=== PATIENT | female | born 1955 | race Caucasian/White ===

== ENCOUNTER 2017-10-22 14:27 | Emergency (ER) | payer MEDICARE, OTHER ==
[~2017-10-22] VITALS: Ht 162.6 cm; Wt 72.6 kg
[~2017-10-22 14:27] MED LIST: HYDR-3652 PO; LISI-603 PO; SIMV40TA5 PO; ZOLP5TAB2 PO
[2017-10-22 14:36] VITALS: BP 145/108
[2017-10-22] MEDS ORDERED: IBUPROFEN 600 MG TABLET PO STA (14:49)
[2017-10-22] MEDS ORDERED: IBUPROFEN 600 MG TABLET PO ONE (14:57)
== END 2017-10-22 15:47 | disposition home or self-care (01) ==
LOC: ER 14:29
DX: S29.012A Strain of muscle and tendon of back wall of thorax, initial encounter (principal); I10 Essential (primary) hypertension; E78.5 Hyperlipidemia, unspecified; Z88.0 Allergy status to penicillin; Z96.643 Presence of artificial hip joint, bilateral; X58.XXXA Exposure to other specified factors, initial encounter; Y93.89 Activity, other specified; Y92.89 Other specified places as the place of occurrence of the external cause; Y99.8 Other external cause status
CPT/HCPCS: 99283; A4606; Z7610

== ENCOUNTER 2020-06-21 01:46 | Emergency (ER) | payer MEDICARE, OTHER ==
[~2020-06-21] VITALS: Ht 162.6 cm; Wt 76.2 kg
[~2020-06-21 01:46] MED LIST changes: -HYDR-3652 PO; +HYDR-4303 PO; +SIMV-49 PO; -SIMV40TA5 PO
--- NOTE | 2020-06-21 02:10 | NUR ---
PT AAOX4. BIBSELF STATED WHENEVER SHE GOES TO SLEEP SHE HAS LLQ PAIN THAT RADIATES TO HER L FLANK AREA. UPON ASSESSMENT DENIES ANY PAIN. PT CONTINUED TO CHANGE HER PAIN AREA. MD AT BEDSIDE FOR EVAL. AWAITING ORDERS. DENIES PAIN, SOB, CP. RR EVEN AND UNLABORED. NO ACUTE DISTRESS NOTED. VSS.
--- NOTE | 2020-06-21 02:23 | NUR ---
ambulated to the restroom
--- NOTE | 2020-06-21 02:24 | NUR ---
EMT AT BEDSIDE FOR EKG
--- NOTE | 2020-06-21 02:27 | NUR ---
DIRECTOR PART AT BEDSIDE FOR LABS
[2020-06-21 02:37] LABS: BASOPHILS # (AUTO) 0.1 /CMM (0.0-0.2); BASOPHILS % (AUTO) 1.1 % (0.0-2.0); EOSINOPHILS % (AUTO) 1.3 % (0.0-6.0); HEMATOCRIT 43 % (33-45); HEMOGLOBIN 14.4 g/dL (11.5-14.8); LYMPHOCYTES # (AUTO) 3.3 /CMM (0.8-4.8); LYMPHOCYTES % (AUTO) 40.9 % (20.0-44.0); MEAN CORPUSCULAR HGB CONC 33 g/dl (31.0-36.0); MEAN CORPUSCULAR VOLUME 87 fL (82-100); MONOCYTES # (AUTO) 0.6 /CMM (0.1-1.30); MONOCYTES % (AUTO) 7.5 % (2.0-12.0); NEUTROPHILS % (AUTO) 49.2 % (43.0-81.0); PLATELET COUNT (AUTO) 262 /CMM (150-450); RED BLOOD CELL COUNT(AUTO) 4.98 MIL/uL (4.0-5.2); WHITE BLOOD COUNT (AUTO) 8.1 K/uL (4.3-11.0)
[2020-06-21 03:02] LABS: APPEARANCE,URINE CLEAR (CLEAR); BILIRUBIN,URINE NEGATIVE (NEGATIVE); BLOOD, URINE NEGATIVE Ery/uL (NEGATIVE); COLOR,URINE YELLOW (YELLOW); KETONES,URINE NEGATIVE (NEGATIVE); LEUKOCYTE ESTERASE ,URINE SMALL (NEGATIVE); NITRITE, URINE NEGATIVE (NEGATIVE); PROTEIN,URINE NEGATIVE (NEGATIVE); UGLUCOSE NEGATIVE (NEGATIVE); UROBILINOGEN,URINE 0.2 EU/dL (0.2)
[2020-06-21 03:03] LABS: ALANINE AMINOTRANSFERASE 29 U/L (12-78); ALBUMIN 3.6 g/dL (3.4-5.0); ALKALINE PHOSPHATASE 65 U/L (46-116); ASPARTATE AMINOTRANSFERASE 22 U/L (15-37); BILIRUBIN,DIRECT 0.1 mg/dL (0.0-0.2); BILIRUBIN,TOTAL 0.3 mg/dL (0.2-1.0); CALCIUM, SERUM 9.3 mg/dL (8.5-10.1); CARBON DIOXIDE 30 mmol/L (21-32); CHLORIDE 101 mmol/L (98-107); CREATININE 0.8 mg/dL (0.6-1.3); GLUCOSE 99 mg/dL (74-106); LIPASE 171 U/L (73-393); SODIUM SERUM 138 mmol/L (136-145); TOTAL PROTEIN, SERUM 6.9 g/dL (6.4-8.2); UREA NITROGEN, BLOOD 26 mg/dL (7-18)
[2020-06-21 03:09] LABS: POTASSIUM 2.7 mmol/L (3.5-5.1)
[2020-06-21] MEDS ORDERED: POTASSIUM CHLORIDE 20 MEQ TAB.PRT.SR PO ONE ×2 (03:15→03:30)
--- NOTE | 2020-06-21 04:56 | NUR ---
Patient discharged to home in stable condition. Written and verbal after care instructions given. Patient verbalizes understanding of instruction and RX. Pt ambulated with stead gait. vss.
[2020-06-21 04:57] VITALS: BP 121/72
== END 2020-06-21 04:58 | disposition home or self-care (01) ==
LOC: ER 02:04
DX: R10.9 Unspecified abdominal pain (principal); R07.81 Pleurodynia; I10 Essential (primary) hypertension; E78.5 Hyperlipidemia, unspecified; Z96.643 Presence of artificial hip joint, bilateral; Z88.0 Allergy status to penicillin; Z88.6 Allergy status to analgesic agent; Z88.8 Allergy status to other drugs, medicaments and biological substances; Z79.899 Other long term (current) drug therapy
CPT/HCPCS: 36415; 71100-TC; 80048-TC; 80076-TC; 81000-TC; 83690-TC; 84484-TC; 85025-TC

== ENCOUNTER 2022-04-30 07:30 | Emergency (ER) | payer OTHER ==
[~2022-04-30] VITALS: Ht 162.6 cm; Wt 72.6 kg
[~2022-04-30 07:30] MED LIST changes: -LISI-603 PO; +LISI20TA30 PO
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
--- NOTE | 2022-04-30 07:56 | NUR ---
X RAY AT BEDSIDE
--- NOTE | 2022-04-30 08:54 | NUR ---
Patient discharged to home in stable condition. Written and verbal after care instructions given. Patient verbalizes understanding of instruction.
[2022-04-30 08:55] VITALS: BP 116/72
== END 2022-04-30 08:55 | disposition home or self-care (01) ==
LOC: ER 07:41
DX: M19.011 Primary osteoarthritis, right shoulder (principal); M25.511 Pain in right shoulder; I10 Essential (primary) hypertension; E78.5 Hyperlipidemia, unspecified; Z96.643 Presence of artificial hip joint, bilateral; Z88.8 Allergy status to other drugs, medicaments and biological substances; Z79.899 Other long term (current) drug therapy
CPT/HCPCS: 73030-TC

== ENCOUNTER 2022-09-14 14:51 | Emergency (ER) | payer OTHER ==
[~2022-09-14] VITALS: Ht 162.6 cm; Wt 78.0 kg
--- NOTE | 2022-09-14 15:10 | NUR ---
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 +NAUSEA. PLACED ON BED, IN PAIN 10/10 PS
[2022-09-14] MEDS ORDERED: HYDROMORPHONE 1 MG/1 ML DISP.SYRIN ONE ×5 (15:29→22:47)
[2022-09-14] MEDS ORDERED: ONDANSETRON HCL/PF 4 MG/2 ML VIAL ONE ×3 (15:29→23:35)
[2022-09-14] MEDS ORDERED: IV NS 0.9% 1,000 ML BAG IV ONE (15:30)
[2022-09-14] MEDS ORDERED: HYDROMORPHONE INJ 2 MG/ML DISP.SYRIN IV ONE (15:30)
[2022-09-14] MEDS ORDERED: ONDANSETRON HCL/PF 4 MG/2 ML VIAL IVP ONE (15:30)
--- NOTE | 2022-09-14 15:35 | NUR ---
BLOOD DRAWN AND SENT TO LAB
[2022-09-14 15:49] LABS: BASOPHILS # (AUTO) 0.1 K/uL (0.0-0.2); BASOPHILS % (AUTO) 0.3 % (0.0-2.0); EOSINOPHILS % (AUTO) 0.2 % (0.0-6.0); HEMATOCRIT 47 % (33-45); HEMOGLOBIN 15.7 g/dL (11.5-14.8); LYMPHOCYTES # (AUTO) 3.5 K/uL (0.8-4.8); LYMPHOCYTES % (AUTO) 13.1 % (20.0-44.0); MEAN CORPUSCULAR HGB CONC 34 g/dl (31.0-36.0); MEAN CORPUSCULAR VOLUME 86 fL (82-100); MONOCYTES # (AUTO) 1.2 K/uL (0.1-1.30); MONOCYTES % (AUTO) 4.6 % (2.0-12.0); NEUTROPHILS # (AUTO) 21.8 K/uL (1.8-8.9); NEUTROPHILS % (AUTO) 81.8 % (43.0-81.0); PLATELET COUNT (AUTO) 317 K/uL (150-450); RED BLOOD CELL COUNT(AUTO) 5.48 MIL/uL (4.0-5.2); WHITE BLOOD COUNT (AUTO) 26.7 K/uL (4.3-11.0)
--- NOTE | 2022-09-14 15:51 | NUR ---
PATIENT TAKEN TO CT VIA JANE
[2022-09-14 16:11] LABS: CALCIUM, SERUM 9.7 mg/dL (8.5-10.1)
[2022-09-14 16:16] LABS: ALBUMIN 4.1 g/dL (3.4-5.0); BILIRUBIN,DIRECT 0.1 mg/dL (0.0-0.2); BILIRUBIN,TOTAL 0.6 mg/dL (0.2-1.0); TOTAL PROTEIN, SERUM 7.7 g/dL (6.4-8.2)
--- NOTE | 2022-09-14 16:44 | NUR ---
SWAB FOR COVID19 SENT TO LAB
[2022-09-14] MEDS ORDERED: IV PREMIX D5 1/2NS + KCL 1,000 ML IV ONE ×2 (17:00→17:16)
[2022-09-14] MEDS ORDERED: HYDROMORPHONE 1 MG/1 ML DISP.SYRIN IV ONE ×2 (17:00→18:30)
[2022-09-14 17:43] LABS: BAND % (MANUAL) 1 % (0.0-5.0); LYMPHOCYTES % (MANUAL) 16 % (16-48); MONOCYTES % (MANUAL) 5 % (0-11.0); NEUTROPHILS % (MANUAL) 76 (42-76); REACTIVE LYMPHOCYTES 2 % (0-0)
--- NOTE | 2022-09-14 19:37 | NUR ---
CALLED [facility] TO REQUEST TRANSFER. SPOKE WITH RICA. CLINICALS FAXED
--- NOTE | 2022-09-14 19:39 | NUR ---
NURSE GIVING CLINICAL REPORT TO TRANSFER CENTER
--- NOTE | 2022-09-14 19:45 | NUR ---
CLINICAL REPORT GIVEN TO RICA PHOTO MASK PROCESSOR [facility]
--- NOTE | 2022-09-14 19:58 | NUR ---
Rahel from [facility] called back to inform that the patient have an IPA assigned which is [facility]. Need to contact [facility] to process transfer and get authorization. Admitting notified to inititate call to IPA
[2022-09-14] MEDS ORDERED: ONDANSETRON HCL/PF 4 MG/2 ML VIAL IV ONE (20:00)
--- NOTE | 2022-09-14 20:02 | NUR ---
VERBAL ORDER ZOFRAN 4MG IVP
--- NOTE | 2022-09-14 20:34 | NUR ---
MAHESH LEATHER GOODS I ASSEMBLER FROM [facility] CALLED BACK TO GET CLINICAL INFORMATION. WILL CALL BACK ONCE TRANSFER IS ARRANGED
--- NOTE | 2022-09-14 20:35 | NUR ---
MAHESH, BIOLOGICS SPECIALIST - [phone]
[2022-09-14] MEDS: HYDROMORPHONE 1 MG/1 ML DISP.SYRIN IV PRN ×2 (20:51→22:50)
--- NOTE | 2022-09-14 21:36 | NUR ---
MAHESH LOGISTICAL ENGINEER CALLED TO INFORM THAT THERE IS NO AVAILABLE BEDS AT [facility]. WILL CALL AGAIN IN THE MORNING ONCE ROOM IS AVAILABLE.
[2022-09-14] MEDS ORDERED: LORAZEPAM INJ 2 MG/ML VIAL ONE (21:40)
[2022-09-14] MEDS ORDERED: LORAZEPAM INJ 2 MG/ML VIAL IV ONE (22:00)
[2022-09-15] MEDS ORDERED: ONDANSETRON HCL/PF 4 MG/2 ML VIAL IV ONE
[2022-09-15] MEDS ORDERED: LORAZEPAM INJ 2 MG/ML VIAL ONE (00:06)
[2022-09-15] MEDS ORDERED: LORAZEPAM INJ 2 MG/ML VIAL IV ONE ×2 (00:30→01:30)
[2022-09-15] MEDS ORDERED: HYDROMORPHONE 1 MG/1 ML DISP.SYRIN ONE ×6 (01:09→15:43)
[2022-09-15] MEDS: HYDROMORPHONE 1 MG/1 ML DISP.SYRIN IV PRN ×7 (01:13→15:57)
--- NOTE | 2022-09-15 02:06 | NUR ---
Patient is resting comfortably in bed with eyes closed. Easily aroused. VSS
[2022-09-15] MEDS ORDERED: ONDANSETRON HCL/PF 4 MG/2 ML VIAL ONE ×5 (05:36→15:42)
[2022-09-15] MEDS: ONDANSETRON HCL/PF 4 MG/2 ML VIAL IV PRN ×4 (05:38→15:58)
--- NOTE | 2022-09-15 07:15 | NUR ---
RECEIVED PT FROM KEVIN DURHAM PT AWAKE AND ALERT C/O ABDOMINALE PAIN 08/08 WITH NAUSE FAMILY AT BED SIDE LINDA
--- NOTE | 2022-09-15 07:47 | NUR ---
CALLED MAHESH PLANNING SPECIALIST FOR UPDATE. NO ANSWER, NO VOICEMAIL SET UP.
--- NOTE | 2022-09-15 07:51 | NUR ---
CALLED [facility] FOR CASE MANAGEMENT, ADVISED TO CALL BACK AT 0900 WHEN THEY OPEN.
[2022-09-15] MEDS ORDERED: HYDROMORPHONE INJ 2 MG/ML DISP.SYRIN ONE (08:04)
--- NOTE | 2022-09-15 09:17 | NUR ---
CALLED [place] [facility] FOR CASE MANAGEMENT, NO ANSWER NO VOICE MAILBOX TO LEAVE .
[2022-09-15] MEDS ORDERED: IV LR 1000 ML 1,000 ML IV ONE ×2 (09:30→11:30)
--- NOTE | 2022-09-15 09:49 | NUR ---
SPOKE TO KRYSTLE [phone] AT [facility] NURSING AERODYNAMICS PROFESSOR. I WAS ADVISED THAT A BED IS NOT AVAILABLE FOR THE PATIENT AT THIS TIME.
--- NOTE | 2022-09-15 09:52 | NUR ---
[facility] PHOTOGRAPHIC TECHNICIAN CONTACT INFO, PAULO , MCKAY , AJ .
--- NOTE | 2022-09-15 10:20 | NUR ---
SPOKE TO DENNIS FROM [facility] TRANSFER LINE [phone] I WAS ADVISED THAT THE PT NEEDS INSURANCE AUTH TO BE CLEARED FOR TRANSFER.
--- NOTE | 2022-09-15 10:42 | NUR ---
SPOKE TO [facility] LEATHER SOFTENER YAZMIN. I WAS ADVISED, THAT INSURANCE WILL GIVE AUTH SOON [facility] HAS A BED AVAILABLE.
--- NOTE | 2022-09-15 11:04 | NUR ---
[facility] CASE MANAGEMENT YAZMIN AWARE OF THIS CASE. THE FOLLOWING NUMBERS ARE GIVEN TO HER. LILLIE (BED CONTROL) FOR [facility]: [phone] DENNIS (TRANSFER CENTER) FOR [facility]: [phone]
--- NOTE | 2022-09-15 13:34 | NUR ---
CALL FROM [facility] WITH [place] INFO: ACCEPTED BY DR ROSHNI [facility] UNIT [address] ROOM 1719 REPORT TO [phone] [address] [facility] [address] CALL ETA TO [phone]
--- NOTE | 2022-09-15 13:38 | NUR ---
ETA 90 MINS BLS TRANSPORT.
--- NOTE | 2022-09-15 14:20 | NUR ---
PT TRANSFER TO [facility] ROOM 1719 Hand off LOW .Dangelo RN STABLE CONDITION AND VS
[2022-09-15 16:00] VITALS: BP 128/72
--- NOTE | 2022-09-15 16:00 | NUR ---
transfer to [facility] VIA ESTIVEN
[2022-09-15] MEDS ORDERED: ONDANSETRON HCL/PF - ER 4 MG/2 ML VIAL IV ONE (16:30)
== END 2022-09-15 16:30 | disposition short-term general hospital (02) ==
LOC: ER 14:57
DX: K85.90 Acute pancreatitis without necrosis or infection, unspecified (principal); E87.6 Hypokalemia; Z20.822 Contact with and (suspected) exposure to COVID-19; K80.20 Calculus of gallbladder without cholecystitis without obstruction; Z96.643 Presence of artificial hip joint, bilateral; Z88.1 Allergy status to other antibiotic agents; Z88.0 Allergy status to penicillin; E78.5 Hyperlipidemia, unspecified; I10 Essential (primary) hypertension
CPT/HCPCS: 99285; 74176; 96365; 96366; 96375; 71045; 96361 ×2; 87426; 93005; 96376 ×2; 85025; 80048; 83690; 80076; 36415; 85730; 85007; J2060 ×2; J2405 ×8; J3490; J1170 ×12; C9803; J7120 ×4

== ENCOUNTER 2023-05-31 19:52 | Inpatient (IN) | payer MEDICARE, OTHER ==
[~2023-05-31] VITALS: Ht 157.5 cm; Wt 61.7 kg
--- NOTE | 2023-05-31 21:45 | NUR ---
BIB DAUGHTER AND CG FOR FEVER AND WEAKNESS TODAY. LAST TYLENOL: 650MG AT 12 - COUGH, DYSURIA OR HEMATURIA.
--- NOTE | 2023-05-31 22:10 | NUR ---
DR CABRERA AT [facility] SIDE
--- NOTE | 2023-05-31 22:31 | NUR ---
BLOOD DRAWN AND SENT TO LAB.
--- NOTE | 2023-05-31 22:35 | NUR ---
X-RAY TECH AT BEDSIDE
[2023-05-31 22:53] LABS: BASOPHILS % (AUTO) 0.2 % (0.0-2.0); EOSINOPHILS % (AUTO) 0.1 % (0.0-6.0); HEMATOCRIT 38 % (33-45); HEMOGLOBIN 12.4 g/dL (11.5-14.8); LYMPHOCYTES # (AUTO) 2.7 K/uL (0.8-4.8); LYMPHOCYTES % (AUTO) 24.1 % (20.0-44.0); MEAN CORPUSCULAR HGB CONC 33 g/dl (31.0-36.0); MEAN CORPUSCULAR VOLUME 90 fL (82-100); MONOCYTES # (AUTO) 0.7 K/uL (0.1-1.30); MONOCYTES % (AUTO) 6.2 % (2.0-12.0); NEUTROPHILS # (AUTO) 7.7 K/uL (1.8-8.9); NEUTROPHILS % (AUTO) 69.4 % (43.0-81.0); PLATELET COUNT (AUTO) 253 K/uL (150-450)
[2023-05-31 23:01] LABS: CALCIUM, SERUM 8.4 mg/dL (8.5-10.1); CARBON DIOXIDE 25 mmol/L (21-32); CHLORIDE 105 mmol/L (98-107); CREATININE 0.7 mg/dL (0.6-1.3); GLUCOSE 118 mg/dL (74-106); SODIUM SERUM 137 mmol/L (136-145); UREA NITROGEN, BLOOD 15 mg/dL (7-18)
[2023-05-31] MEDS ORDERED: IV NS 0.9% 250 ML IV ONE (23:07)
[2023-05-31] MEDS ORDERED: CT SWABBABLE VALVE TRANS SET 1 EA INFUS.SET MC ONE (23:07)
[2023-05-31] MEDS ORDERED: IOHEXOL-350 100 ML VIAL IV ONE (23:07)
[2023-05-31 23:13] LABS: ALANINE AMINOTRANSFERASE 49 U/L (12-78); ALBUMIN 2.2 g/dL (3.4-5.0); ALKALINE PHOSPHATASE 273 U/L (46-116); ASPARTATE AMINOTRANSFERASE 39 U/L (15-37); BILIRUBIN,DIRECT 0.2 mg/dL (0.0-0.2); BILIRUBIN,TOTAL 0.5 mg/dL (0.2-1.0); TOTAL PROTEIN, SERUM 6.3 g/dL (6.4-8.2)
--- NOTE | 2023-05-31 23:14 | NUR ---
PATIENT TAKEN TO CT VIA JANE
[2023-05-31 23:35] LABS: BILIRUBIN,URINE NEGATIVE (NEGATIVE); COLOR,URINE YELLOW (YELLOW); LEUKOCYTE ESTERASE ,URINE NEGATIVE (NEGATIVE); NITRITE, URINE NEGATIVE (NEGATIVE); PH,URINE 5.5 (5.0-8.0); PROTEIN,URINE NEGATIVE (NEGATIVE); UGLUCOSE NEGATIVE (NEGATIVE); UROBILINOGEN,URINE 0.2 EU/dL (0.2)
[2023-06-01] MEDS ORDERED: CIPROFLOXACIN IV RTU 200 ML IV ONE (00:43)
[2023-06-01] MEDS ORDERED: POTASSIUM CHLORIDE 20 MEQ TAB.PRT.SR PO ONE ×2 (00:58→01:00)
[2023-06-01] MEDS ORDERED: VANCOMYCIN 1 GM in IV D5W 250 ML IV ONE (01:00)
[2023-06-01] MEDS ORDERED: CIPROFLOXACIN IV RTU 400 MG in PREMIX 1 EA IV SCH ×2 (01:00→13:00)
[2023-06-01] MEDS ORDERED: ONDANSETRON HCL/PF 4 MG/2 ML VIAL IVP PRN (01:30)
[2023-06-01] MEDS ORDERED: Z GUARD REMEDY 4 OZ OINT TP PRN (01:30)
[2023-06-01] MEDS ORDERED: MAG HYDROX/AL HYDROX/SIMETH 30 ML UDC PO PRN (01:30)
[2023-06-01] MEDS ORDERED: ZOLPIDEM TARTRATE 5 MG TABLET PO PRN (01:30)
[2023-06-01] MEDS ORDERED: MAGNESIUM HYDROXIDE 30 ML UDC PO PRN (01:30)
[2023-06-01] MEDS ORDERED: ACETAMINOPHEN 325 MG TABLET PO PRN (01:30)
--- NOTE | 2023-06-01 01:31 | NUR ---
report given to lina
[2023-06-01] MEDS ORDERED: VANCOMYCIN 1 GM /D5W 250 ML PB IV ONE (01:59)
[2023-06-01 02:15] VITALS: BP 115/62; TEMP 98.2; O2SAT 97
[2023-06-01 02:30] VITALS: BP 115/62; TEMP 98.2; O2SAT 97
--- NOTE | 2023-06-01 02:33 | NUR ---
pt transported to room 306 via [facility] in stable condition
--- NOTE | 2023-06-01 02:45 | NUR ---
MS TUTORING MANAGER NOTES: RECEIVED PATIENT FROM ER AT 0215 VIA STRETCHER ACCOMPANIED BY DAUGHTER AND CAREGIVER. REPORT GIVEN BY LAMIN DURHMA. PATIENT IS A/O X4, ABLE TO MAKE NEEDS KNOWN. PATIENT ORIENTED TO ROOM AND HOW TO USE THE CALL LIGHT. ON ROOM AIR, BREATHING EVEN AND UNLABORED. NO SOB/ NOTED. NO COMPLAINTS OF PAIN OR DISCOMFORT AT THIS TIME. ALL BELONGINGS ACCOUNTED FOR, BELONGING SHEET SIGNED. IV ACCESS AT RAC #20G-SL, INTACT AND PATENT. V/S TAKEN FOLLOWS: BP 115/62, HR 63, TEMP 98.2, RR 18, SPO2 97%. SKIN ASSESSMENT DONE, WOUND NOTED ON ABDOMEN AND SURGICAL INCISION ON RIGHT HIP. PHOTOS TAKEN AND PLACED IN CHART. FALL AND SAFETY PRECAUTIONS IN PLACED, BED IN LOW AND LOCKED POSITION, SIDE RAILS UP X2. CALL LIGHT WITHIN EASY REACH.
[2023-06-01 06:20] LABS: ALBUMIN 1.8 g/dL (3.4-5.0); BILIRUBIN,TOTAL 0.4 mg/dL (0.2-1.0); CALCIUM, SERUM 8.4 mg/dL (8.5-10.1); CREATININE 0.6 mg/dL (0.6-1.3); MAGNESIUM 1.9 mg/dL (1.8-2.4); PHOSPHORUS 3.3 mg/dL (2.5-4.9); POTASSIUM 3.1 mmol/L (3.5-5.1); TOTAL PROTEIN, SERUM 5.4 g/dL (6.4-8.2)
--- NOTE | 2023-06-01 06:30 | NUR ---
MS RN CLOSING NOTES: PATIENT ASLEEP ON BED, A/O X4. ON ROOM AIR, BREATHING EVEN AND UNLABORED. NO SOB/ NOTED. NO COMPLAINTS OF PAIN OR DISCOMFORT NOTED. IV ACCESS AT RAC #20G-SL, INTACT AND PATENT. WOUND CARE DONE DURING THE SHIFT. FALL AND SAFETY PRECAUTIONS IN PLACED, BED IN LOW AND LOCKED POSITION, SIDE RAILS UP X2. CALL LIGHT WITHIN EASY REACH. ALL NURSING NEEDS ATTENDED. ENDORSED TO AM NURSE FOR RADHA.
--- NOTE | 2023-06-01 07:43 | NUR ---
MS RN OPENING NOTES RECEIVED PATIENT AWAKE IN BED. PATIENT IS A/O X4, ABLE TO MAKE NEEDS KNOWN. PATIENT ORIENTED TO ROOM AND HOW TO USE THE CALL LIGHT. ON ROOM AIR, BREATHING EVEN AND UNLABORED. NO SOB/ NOTED AT THIS TIME. NO COMPLAINTS OF PAIN OR DISCOMFORT AT THIS TIME. IV ACCESS AT RAC #20G-SL, INTACT AND PATENT. WOUND NOTED ON ABDOMEN AND SURGICAL INCISION ON RIGHT HIP. FALL AND SAFETY PRECAUTIONS IN PLACED, BED IN LOW AND LOCKED POSITION, SIDE RAILS UP X2. CALL LIGHT WITHIN EASY REACH. WILL CONTINUE TO MONITOR PATIENT.
[2023-06-01 08:02] VITALS: BP 116/66; TEMP 98.4; O2SAT 95
[2023-06-01] MEDS: POTASSIUM CHLORIDE 20 MEQ TAB.PRT.SR PO SCH ×2 (08:40→09:12)
[2023-06-01] MEDS: PANTOPRAZOLE 40 MG VIAL IV SCH (08:40)
--- NOTE | 2023-06-01 09:00 | NUR ---
RN NOTE DAUGHTER CALLED TWICE. SPOKE TO HER AND INFORMED ME THAT SHE ALREADY SPOKE WITH HER MOM'S DAUGHTER AT [facility] AND GIVING US CONSENT FOR PARACENTESIS.
--- NOTE | 2023-06-01 13:08 | NUR ---
RN NOTE STARTED ULTRASOUND GUIDED PARACENTESIS WITH DR. LYNN. WILL CONTINUE TO MONITOR PATIENT.
--- NOTE | 2023-06-01 13:30 | NUR ---
RN NOTE DONE PARACENTESIS. SENT ASCITIC FLUIDS 250ML AT LAB WITH CYTOLOGY REPORT. WILL CONTINUE TO MONITOR PATIENT.
[2023-06-01 15:54] VITALS: BP 130/75; TEMP 99.1; O2SAT 97
--- NOTE | 2023-06-01 16:59 | NUR ---
RN NOTE PATIENT HAS TEMPERATURE IS 100.8. TYLENOL 650 MG GIVEN. WILL CONTINUE TO MONITOR
[2023-06-01] MEDS: MEROPENEM 500 MG in IV NS 0.9% 50 ML IV SCH (17:25)
[2023-06-01] MEDS: HYDROGEL DRESSING 90 GM TUBE TP SCH (17:42)
[2023-06-01] MEDS: VANCOMYCIN 1 GM in IV D5W 250ml IV SCH (18:11)
--- NOTE | 2023-06-01 19:06 | NUR ---
MS RN CLOSING NOTES: PATIENT AWAKE ON BED, CAREGIVER AT BEDSIDE. A/O X4. ON ROOM AIR, BREATHING EVEN AND UNLABORED. NO SOB/ NOTED. NO COMPLAINTS OF PAIN OR DISCOMFORT NOTED. IV ACCESS AT LFA #20G-SL, INTACT AND PATENT. WOUND CARE DONE DURING THE SHIFT. PARACENTESIS AND WOUND DEBRIDEMENT DONE. ALL DUE MEDS GIVEN. FALL AND SAFETY PRECAUTIONS IN PLACED, BED IN LOW AND LOCKED POSITION, SIDE RAILS UP X2. CALL LIGHT WITHIN EASY REACH. ALL NURSING NEEDS ATTENDED. ENDORSED TO NIGHT NURSE FOR RADHA.
--- NOTE | 2023-06-01 19:30 | NUR ---
MS RN OPENING NOTES RECEIVED PATIENT AWAKE IN BED, FAMILY AND CAREGIVER AT BEDSIDE. PATIENT IS A/O X4, ABLE TO MAKE NEEDS KNOWN. ON ROOM AIR, BREATHING EVEN AND UNLABORED. NO SOB/ NOTED AT THIS TIME. NO COMPLAINTS OF PAIN OR DISCOMFORT AT THIS TIME. IV ACCESS AT RAC #20G-SL, INTACT AND PATENT. WOUND NOTED ON ABDOMEN AND SURGICAL INCISION ON RIGHT HIP. FALL AND SAFETY PRECAUTIONS IN PLACE: BED IN LOW AND LOCKED POSITION, SIDE RAILS UP X2. CALL LIGHT WITHIN EASY REACH. WILL CONTINUE TO MONITOR AND ASSIST.
[2023-06-01 20:00] VITALS: BP 101/63; TEMP 97.6; O2SAT 96
[2023-06-01] MEDS ORDERED: METH-647 PO (23:45)
[2023-06-01] MEDS ORDERED: LIPA1CAP15 PO (23:45)
[2023-06-01] MEDS ORDERED: SPIR50TA5 PO (23:45)
[2023-06-01] MEDS ORDERED: CITA40TA11 PO (23:45)
[2023-06-01] MEDS ORDERED: FURO20TA4 PO (23:45)
[2023-06-02] MEDS: MEROPENEM 500 MG in IV NS 0.9% 50 ML IV SCH ×2 (00:30→08:22)
[2023-06-02] MEDS: VANCOMYCIN 1 GM in IV D5W 250ml IV SCH (05:27)
--- NOTE | 2023-06-02 06:03 | NUR ---
MS RN CLOSING NOTES: PATIENT AWAKE ON BED. A/O X4, ABLE TO MAKE NEEDS KNOWN. STABLE ON ROOM AIR, BREATHING EVEN AND UNLABORED. NO SOB/ NOTED. NO COMPLAINTS OF PAIN OR DISCOMFORT NOTED. IV ACCESS AT LFA #20G-SL, INTACT AND PATENT. WOUND CARE DONE DURING THE SHIFT. PUREWICK PUT IN PLACE, DRAINING URINE WELL. ALL CARE PROVIDED AND MEDS TOLERATED WELL. HOME MEDICATIONS RECONCILED AND WILL BE GIVEN TO PHARMACY. FALL AND SAFETY PRECAUTIONS IN PLACE, BED IN LOW AND LOCKED POSITION, SIDE RAILS UP X2. CALL LIGHT WITHIN EASY REACH. ALL NURSING NEEDS ATTENDED. WILL ENDORSE RADHA TO DAY SHIFT NURSE.
[2023-06-02 06:06] LABS: ALBUMIN 1.6 g/dL (3.4-5.0); BILIRUBIN,TOTAL 0.3 mg/dL (0.2-1.0); CALCIUM, SERUM 8.4 mg/dL (8.5-10.1); CREATININE 0.4 mg/dL (0.6-1.3); PHOSPHORUS 3.6 mg/dL (2.5-4.9); POTASSIUM 3.2 mmol/L (3.5-5.1); TOTAL PROTEIN, SERUM 5.3 g/dL (6.4-8.2)
--- NOTE | 2023-06-02 07:18 | NUR ---
MS RN OPENING NOTES RECEIVED PATIENT SLEEPING IN BED, EASY TO WAKE UP. PATIENT IS A/O X4, ABLE TO MAKE NEEDS KNOWN. ON ROOM AIR, BREATHING EVEN AND UNLABORED. NO SOB/ NOTED AT THIS TIME. NO COMPLAINTS OF PAIN OR DISCOMFORT AT THIS TIME. IV ACCESS AT LFA #20G-SL, INTACT AND PATENT. WITH WOUND NOTED ON ABDOMEN AND SURGICAL INCISION ON RIGHT HIP, WITH DRY DRESSING CLEAN AND INTACT. FALL AND SAFETY PRECAUTIONS IN PLACED, BED IN LOW AND LOCKED POSITION, SIDE RAILS UP X2. CALL LIGHT WITHIN EASY REACH. WILL CONTINUE WITH THE PLAN OF CARE.
[2023-06-02] MEDS: PANTOPRAZOLE 40 MG VIAL IV SCH (08:22)
[2023-06-02] MEDS: POTASSIUM CHLORIDE 20 MEQ TAB.PRT.SR PO SCH ×2 (08:23→09:47)
[2023-06-02 08:29] VITALS: BP 139/70; TEMP 97.9; O2SAT 95
[2023-06-02] MEDS: HYDROGEL DRESSING 90 GM TUBE TP SCH (09:07)
--- NOTE | 2023-06-02 14:10 | NUR ---
MS RN NOTE PATIENT SIGNED AGAINST [facility]. INFORMED DR. SCOTT.
--- NOTE | 2023-06-02 14:20 | NUR ---
MS EARLY INTERVENTION SCHOOL PSYCHOLOGIST NOTES DISCHARGE AGAINST [facility].PATIENT IS A/O X 4, ABLE TO MAKE TO MAKE NEEDS KNOWN. STABLE ON ROOM AIR, NO SOB OR S/SX OF DISTRESS NOTED. ALL BELONGINGS ACCOUNTED FOR , BELONGING SHEET SIGNED. PATIENT DENIES DISCOMFORT OR ANY PAIN AT THIS TIME. IV ACCESS REMOVED, CATHETER TIP INTACT, PRESSURE DRESSING APPLIED. EXITCARE FOLDER GIVEN TO PATIENT. PATIENT LEFT IN STABLE CONDITION WITH FAMILY VIA PRIVATE CAR.
[2023-06-03] MEDS ORDERED: PANTOPRAZOLE 40 MG TABLET.DR PO SCH (09:00)
== END 2023-06-02 14:34 | disposition left against medical advice (07) | DRG 357 ==
LOC: ER 19:55 → MED 06-01 01:22
PROVIDERS: ADMIT Internal Medicine; ATTEND Internal Medicine
PROC: 0JB80ZZ Excision of Abdomen Subcutaneous Tissue and Fascia, Open Approach (ICD-10-PCS; principal; 2023-06-01)
PROC: 0KBN0ZZ Excision of Right Hip Muscle, Open Approach (ICD-10-PCS; 2023-06-01)
PROC: 0W9G3ZZ Drainage of Peritoneal Cavity, Percutaneous Approach (ICD-10-PCS; 2023-06-01)
DX: K65.2 Spontaneous bacterial peritonitis (principal); R18.8 Other ascites; I10 Essential (primary) hypertension; E78.5 Hyperlipidemia, unspecified; F41.9 Anxiety disorder, unspecified; Z87.19 Personal history of other diseases of the digestive system; E87.6 Hypokalemia; R53.1 Weakness; S31.109A Unspecified open wound of abdominal wall, unspecified quadrant without penetration into peritoneal cavity, initial encounter; S71.001A Unspecified open wound, right hip, initial encounter; X58.XXXA Exposure to other specified factors, initial encounter; Y93.9 Activity, unspecified; Y92.009 Unspecified place in unspecified non-institutional (private) residence as the place of occurrence of the external cause; Z88.0 Allergy status to penicillin; Z95.828 Presence of other vascular implants and grafts; K76.0 Fatty (change of) liver, not elsewhere classified; K57.30 Diverticulosis of large intestine without perforation or abscess without bleeding; F32.9 Major depressive disorder, single episode, unspecified
CPT/HCPCS: 36415; 71045-TC; 76942-TC; 80048-TC; 80053-TC; 80061-TC; 80076-TC; 83605-TC; 83735-TC; 83880; 84100-TC; 84484-TC; 85025-TC; 85610-TC; 87040-TC; 87086-TC; 88108-TC; 88305-TC; 88312-TC; 89051-TC; A4216; A4223; A6248; A6253; A6403; A6407; C9113; G0378; J0744; J2185; J3370; J7050; J7060; Q9967

== ENCOUNTER 2025-03-15 22:00 | Inpatient (IN) | payer MEDICARE, OTHER ==
[~2025-03-15] VITALS: Ht 157.5 cm; Wt 64.6 kg
[~2025-03-15 22:00] MED LIST changes: +CITA40TA11 PO; +FURO20TA4 PO; +LIPA1CAP15 PO; +METH-647 PO; +SPIR50TA5 PO
[2025-03-15] MEDS ORDERED: ONDANSETRON HCL/PF 4 MG/2 ML VIAL ONE (23:24)
[2025-03-15] MEDS ORDERED: BACLOFEN (10 MG) 10 MG TABLET ONE (23:35)
[2025-03-15] MEDS: IV NS 0.9% 1,000 ML BAG IV ONE (23:37)
[2025-03-15] MEDS: BACLOFEN (10 MG) 10 MG TABLET PO ONE (23:37)
[2025-03-15] MEDS: ONDANSETRON HCL/PF 4 MG/2 ML VIAL IVP ONE (23:37)
[2025-03-15 23:42] LABS: HEMATOCRIT 41 % (33-45); HEMOGLOBIN 13.6 g/dL (11.5-14.8); LYMPHOCYTES # (AUTO) 0.2 K/uL (0.8-4.8); LYMPHOCYTES % (AUTO) 2.5 % (20.0-44.0); MEAN CORPUSCULAR HEMOGLOBIN 29 PG (26.0-33.0); MEAN CORPUSCULAR HGB CONC 34 g/dl (31.0-36.0); MEAN CORPUSCULAR VOLUME 88 fL (82-100); MONOCYTES % (AUTO) 0.4 % (2.0-12.0); NEUTROPHILS # (AUTO) 7.6 K/uL (1.8-8.9); NEUTROPHILS % (AUTO) 97.1 % (43.0-81.0); PLATELET COUNT (AUTO) 158 K/uL (150-450); RED BLOOD CELL COUNT(AUTO) 4.62 MIL/uL (4.0-5.2); RED CELL DISTRIBUTION WIDTH 15.3 % (11.5-15.0); WHITE BLOOD COUNT (AUTO) 7.8 K/uL (4.3-11.0)
[2025-03-15 23:49] LABS: CALCIUM, SERUM 9.1 mg/dL (8.5-10.1); CARBON DIOXIDE 29 mmol/L (21-32); CHLORIDE 102 mmol/L (98-107); CREATININE 1.2 mg/dL (0.6-1.3); GLUCOSE 125 mg/dL (74-106); POTASSIUM 3.4 mmol/L (3.5-5.1); SODIUM SERUM 140 mmol/L (136-145); UREA NITROGEN, BLOOD 28 mg/dL (7-18)
[2025-03-15 23:55] LABS: ALANINE AMINOTRANSFERASE 22 U/L (12-78); ALBUMIN 3.7 g/dL (3.4-5.0); ALKALINE PHOSPHATASE 101 U/L (46-116); ASPARTATE AMINOTRANSFERASE 19 U/L (15-37); BILIRUBIN,DIRECT 0.2 mg/dL (0.0-0.2); BILIRUBIN,TOTAL 0.6 mg/dL (0.2-1.0); LIPASE 213 U/L (16-77); TOTAL PROTEIN, SERUM 6.9 g/dL (6.4-8.2)
[2025-03-16] LABS: LACTIC ACID 2.8 mmol/L (0.4-2.0)
[2025-03-16] MEDS ORDERED: MORPHINE SULFATE INJ 4 MG/ML DISP.SYRIN ONE (02:18)
[2025-03-16] MEDS: MORPHINE SULFATE INJ 2 MG/ML DISP.SYRIN IV ONE (02:20)
[2025-03-16 03:34] LABS: APPEARANCE,URINE SLIGHTLY CLOUDY (CLEAR); BILIRUBIN,URINE NEGATIVE (NEGATIVE); BLOOD, URINE NEGATIVE Ery/uL (NEGATIVE); COLOR,URINE YELLOW (YELLOW); KETONES,URINE NEGATIVE (NEGATIVE); LEUKOCYTE ESTERASE ,URINE TRACE (NEGATIVE); NITRITE, URINE POSITIVE (NEGATIVE); PROTEIN,URINE NEGATIVE (NEGATIVE); UGLUCOSE NEGATIVE (NEGATIVE); UROBILINOGEN,URINE 0.2 EU/dL (0.2)
[2025-03-16 03:50] LABS: BACTERIA,URINE Many /HPF (None Seen); SQUAMOUS EPITHELIAL CELL,UR Moderate /HPF (None Seen)
[2025-03-16 03:51] LABS: ADD URINE CULTURE YES; RBC,URINE 0-2 /HPF (0-2)
[2025-03-16] MEDS ORDERED: CIPROFLOXACIN IV RTU 200 ML IV ONE (05:41)
[2025-03-16] MEDS: CIPROFLOXACIN IV RTU 400 MG in PREMIX 1 EA IV SCH ×2 (06:00→17:15)
[2025-03-16] MEDS: IV NS 0.9% 1,000 ML BAG IV ONE (06:04)
[2025-03-16] MEDS ORDERED: Z GUARD REMEDY 4 OZ OINT TP PRN (06:30)
[2025-03-16] MEDS ORDERED: MAGNESIUM HYDROXIDE 30 ML UDC PO PRN (06:30)
[2025-03-16] MEDS ORDERED: MAG HYDROX/AL HYDROX/SIMETH 30 ML UDC PO PRN (06:30)
[2025-03-16] MEDS ORDERED: ACETAMINOPHEN 325 MG TABLET PO PRN (06:30)
[2025-03-16] MEDS ORDERED: ONDANSETRON HCL/PF 4 MG/2 ML VIAL IVP PRN (06:30)
[2025-03-16 07:24] LABS: BASOPHILS % (AUTO) 0.3 % (0.0-2.0); EOSINOPHILS % (AUTO) 0.1 % (0.0-6.0); HEMATOCRIT 37 % (33-45); LYMPHOCYTES # (AUTO) 0.5 K/uL (0.8-4.8); LYMPHOCYTES % (AUTO) 2.7 % (20.0-44.0); MEAN CORPUSCULAR HEMOGLOBIN 29 PG (26.0-33.0); MEAN CORPUSCULAR HGB CONC 33 g/dl (31.0-36.0); MEAN CORPUSCULAR VOLUME 89 fL (82-100); MONOCYTES # (AUTO) 0.7 K/uL (0.1-1.30); MONOCYTES % (AUTO) 3.6 % (2.0-12.0); NEUTROPHILS # (AUTO) 17.3 K/uL (1.8-8.9); NEUTROPHILS % (AUTO) 93.3 % (43.0-81.0); PLATELET COUNT (AUTO) 151 K/uL (150-450); RED BLOOD CELL COUNT(AUTO) 4.16 MIL/uL (4.0-5.2); RED CELL DISTRIBUTION WIDTH 15.5 % (11.5-15.0); WHITE BLOOD COUNT (AUTO) 18.5 K/uL (4.3-11.0)
[2025-03-16 07:39] LABS: CALCIUM, SERUM 8.3 mg/dL (8.5-10.1); CREATININE 1.2 mg/dL (0.6-1.3); MAGNESIUM 1.9 mg/dL (1.8-2.4); PHOSPHORUS 3.8 mg/dL (2.5-4.9); POTASSIUM 3.4 mmol/L (3.5-5.1)
[2025-03-16 07:52] LABS: ANISOCYTOSIS 1+; BAND % (MANUAL) 1 % (0.0-5.0); LYMPHOCYTES % (MANUAL) 1 % (16-48); MONOCYTES % (MANUAL) 1 % (0-11.0); NEUTROPHILS % (MANUAL) 97 (42-76); PLATELET ESTIMATE ADEQUATE; STOMATOCYTES 1+
[2025-03-16] MEDS: PANTOPRAZOLE 40 MG TABLET.DR PO SCH (08:14)
[2025-03-16] MEDS: POTASSIUM CHLORIDE 20 MEQ TAB.PRT.SR PO SCH (09:32)
[2025-03-16] MEDS: IV NS 0.9% 1,000 ML IV PRN (09:45)
[2025-03-16] MEDS: ENOXAPARIN SODIUM 40 MG/0.4 ML DISP.SYRIN SQ SCH (11:36)
[2025-03-16] MEDS: METHOCARBAMOL (750MG) 750 MG TABLET PO SCH (11:37)
[2025-03-16] MEDS: Magnesium 1GM/D5W 100ML PREMIX 100 ML IV SCH (11:37)
[2025-03-16 16:15] VITALS: BP 93/52; TEMP 97.7; O2SAT 96
[2025-03-16] MEDS ORDERED: CITA40TA11 PO (17:36)
[2025-03-16] MEDS ORDERED: SIMV-46 PO (17:36)
[2025-03-16] MEDS ORDERED: FURO20TA4 PO (17:36)
[2025-03-16] MEDS ORDERED: ZOLP5TAB8 PO (17:36)
[2025-03-16] MEDS ORDERED: SPIR50TA5 PO (17:36)
[2025-03-16] MEDS ORDERED: CHOL100062 PO (17:36)
[2025-03-16] MEDS ORDERED: PANT40TA49 PO (17:36)
[2025-03-16 20:00] VITALS: BP 93/48; TEMP 97.9; O2SAT 100
[2025-03-16] MEDS: ZOLPIDEM TARTRATE 5 MG TABLET PO SCH (22:58)
[2025-03-17 06:58] LABS: BASOPHILS % (AUTO) 0.4 % (0.0-2.0); EOSINOPHILS # (AUTO) 0.1 K/uL (0.0-0.7); EOSINOPHILS % (AUTO) 0.8 % (0.0-6.0); HEMATOCRIT 33 % (33-45); HEMOGLOBIN 10.7 g/dL (11.5-14.8); LYMPHOCYTES # (AUTO) 1.3 K/uL (0.8-4.8); LYMPHOCYTES % (AUTO) 15.2 % (20.0-44.0); MEAN CORPUSCULAR HEMOGLOBIN 29 PG (26.0-33.0); MEAN CORPUSCULAR HGB CONC 33 g/dl (31.0-36.0); MEAN CORPUSCULAR VOLUME 90 fL (82-100); MONOCYTES # (AUTO) 0.6 K/uL (0.1-1.30); MONOCYTES % (AUTO) 6.4 % (2.0-12.0); NEUTROPHILS # (AUTO) 6.7 K/uL (1.8-8.9); NEUTROPHILS % (AUTO) 77.2 % (43.0-81.0); PLATELET COUNT (AUTO) 124 K/uL (150-450); RED BLOOD CELL COUNT(AUTO) 3.66 MIL/uL (4.0-5.2); RED CELL DISTRIBUTION WIDTH 15.5 % (11.5-15.0); WHITE BLOOD COUNT (AUTO) 8.7 K/uL (4.3-11.0)
[2025-03-17 07:08] LABS: ALBUMIN 2.5 g/dL (3.4-5.0); BILIRUBIN,TOTAL 0.7 mg/dL (0.2-1.0); CALCIUM, SERUM 8.2 mg/dL (8.5-10.1); MAGNESIUM 2.1 mg/dL (1.8-2.4); PHOSPHORUS 2.5 mg/dL (2.5-4.9); POTASSIUM 3.4 mmol/L (3.5-5.1); TOTAL PROTEIN, SERUM 5.4 g/dL (6.4-8.2)
[2025-03-17 07:30] VITALS: BP 98/56; TEMP 98.4; O2SAT 86
[2025-03-17] MEDS ORDERED: CITALOPRAM HYDROBROMIDE 20 MG TABLET PO SCH (09:00)
[2025-03-17] MEDS: POTASSIUM CHLORIDE 10 MEQ TABLET.SA PO ONE (09:36)
[2025-03-17 16:00] VITALS: BP 100/65; TEMP 97.3; O2SAT 96
[2025-03-17 17:30] VITALS: BP 110/65; TEMP 97.3; O2SAT 98
[2025-03-17] MEDS: HYDROCODONE/APAP 5/325MG TABLET PO PRN (17:33)
[2025-03-17] MEDS: diphenhydrAMINE HCL ELIX 25 MG/10 ML UDC PO ONE (18:25)
[2025-03-17 20:00] VITALS: BP 106/60; TEMP 97.7; O2SAT 97
[2025-03-18 07:01] LABS: BASOPHILS % (AUTO) 0.6 % (0.0-2.0); EOSINOPHILS # (AUTO) 0.1 K/uL (0.0-0.7); EOSINOPHILS % (AUTO) 0.9 % (0.0-6.0); HEMATOCRIT 32 % (33-45); HEMOGLOBIN 10.6 g/dL (11.5-14.8); LYMPHOCYTES # (AUTO) 1.3 K/uL (0.8-4.8); LYMPHOCYTES % (AUTO) 20.1 % (20.0-44.0); MEAN CORPUSCULAR HEMOGLOBIN 29 PG (26.0-33.0); MEAN CORPUSCULAR HGB CONC 33 g/dl (31.0-36.0); MEAN CORPUSCULAR VOLUME 89 fL (82-100); MONOCYTES # (AUTO) 0.6 K/uL (0.1-1.30); NEUTROPHILS # (AUTO) 4.5 K/uL (1.8-8.9); NEUTROPHILS % (AUTO) 69.4 % (43.0-81.0); PLATELET COUNT (AUTO) 122 K/uL (150-450); RED CELL DISTRIBUTION WIDTH 15.4 % (11.5-15.0); WHITE BLOOD COUNT (AUTO) 6.5 K/uL (4.3-11.0)
[2025-03-18 07:08] LABS: CALCIUM, SERUM 8.3 mg/dL (8.5-10.1); CREATININE 0.9 mg/dL (0.6-1.3); PHOSPHORUS 2.3 mg/dL (2.5-4.9); POTASSIUM 3.6 mmol/L (3.5-5.1)
[2025-03-18 08:00] VITALS: BP 109/56; TEMP 98.1; O2SAT 94
[2025-03-18 16:00] VITALS: BP 121/65; TEMP 98.6; O2SAT 100; O2SAT 96
[2025-03-18] MEDS: K PHOS NEUTRAL 250 MG TABLET PO ONE (16:51)
[2025-03-18 20:00] VITALS: BP 129/78; TEMP 98.4; O2SAT 96
[2025-03-18] MEDS: ALPRAZOLAM 0.25 MG TABLET PO PRN (20:09)
[2025-03-18] MEDS: LIDOCAINE VISCOUS 2% UD 15 ML UDC MM SCH (20:09)
[2025-03-19 07:20] LABS: CALCIUM, SERUM 8.5 mg/dL (8.5-10.1); PHOSPHORUS 3.1 mg/dL (2.5-4.9); POTASSIUM 3.6 mmol/L (3.5-5.1)
[2025-03-19] MEDS: ACYCLOVIR 200 MG CAPSULE PO SCH (14:07)
[2025-03-19] MEDS: CIPROFLOXACIN HCL 500 MG TABLET PO SCH (18:42)
[2025-03-19 20:00] VITALS: BP 146/69; TEMP 99.1; O2SAT 95
[2025-03-19 21:45] VITALS: BP 146/69; TEMP 99.1; O2SAT 95
[2025-03-20 07:00] VITALS: BP 82/62; TEMP 98.4; O2SAT 96
[2025-03-20 08:02] LABS: CALCIUM, SERUM 9.3 mg/dL (8.5-10.1); CREATININE 0.9 mg/dL (0.6-1.3); MAGNESIUM 2.3 mg/dL (1.8-2.4); PHOSPHORUS 3.4 mg/dL (2.5-4.9); POTASSIUM 3.5 mmol/L (3.5-5.1)
[2025-03-20] MEDS ORDERED: ACYC200C31 PO (11:17)
[2025-03-20] MEDS: FOSFOMYCIN TROMETHAMINE 3 G/PKT PACKET PO ONE (11:28)
== END 2025-03-20 15:10 | disposition home or self-care (01) | DRG 871 ==
LOC: ER 22:10 → MED 03-16 07:47
PROVIDERS: ADMIT Nurse Practitioner Family; ATTEND Nurse Practitioner Acute Care
DX: A41.9 Sepsis, unspecified organism (principal); K85.90 Acute pancreatitis without necrosis or infection, unspecified; N39.0 Urinary tract infection, site not specified; K86.1 Other chronic pancreatitis; E87.20 Acidosis, unspecified; B00.89 Other herpesviral infection; K86.3 Pseudocyst of pancreas; K52.9 Noninfective gastroenteritis and colitis, unspecified; R65.20 Severe sepsis without septic shock; E86.0 Dehydration; E87.6 Hypokalemia; E78.5 Hyperlipidemia, unspecified; I10 Essential (primary) hypertension; B96.20 Unspecified Escherichia coli [E. coli] as the cause of diseases classified elsewhere; F32.A Depression, unspecified; F41.9 Anxiety disorder, unspecified; K57.30 Diverticulosis of large intestine without perforation or abscess without bleeding; Z88.0 Allergy status to penicillin
CPT/HCPCS: 36415; 71045-TC; 80048-TC; 80053-TC; 80076-TC; 81001; 82550-TC; 83605-TC; 83690-TC; 83735-TC; 84100-TC; 84484-TC; 85025-TC; 86695; 87040-TC; 87086-TC; 87186-TC; 97110-TC; 97116-TC; 97530-TC; A4216; A4223; G0378; J0744; J1650; J2270; J2405; J3475; J7030; Q0163